=== PATIENT | female | born 1945 | race Caucasian/White ===

== ENCOUNTER 2017-05-21 19:20 | Emergency (ER) | payer SELFPAY ==
[~2017-05-21] VITALS: Ht 172.7 cm; Wt 74.1 kg
[~2017-05-21 19:20] MED LIST: ACET325T14 PO; CLON0.1T PO; ENOX40SY4 SQ; ERTA1VIA IV; FAMO-79 PO; HYDR-3307 PO; LISI-167 PO; NICO-430 TD; POLY17PO5 PO; SENN-99 PO
[2017-05-21 19:27] VITALS: BP 180/107
[2017-05-21] MEDS ORDERED: LORazepam 1MG TABLET ONE (20:27)
[2017-05-21] MEDS ORDERED: PROPOFOL 10 MG/ML, 20ML IVPush ONE (20:30)
[2017-05-21] MEDS ORDERED: BUPIVACAINE/PF 0.5% INFIL ONE (20:30)
[2017-05-21] MEDS ORDERED: SODIUM CHLORIDE FLUSH 10ML SYR IVF ONE (20:30)
[2017-05-21] MEDS ORDERED: LORazepam 1MG TABLET PO ONE (20:30)
[2017-05-21] MEDS ORDERED: ONDANSETRON 2MG/ML, 2ML IVPush ONE (20:30)
[2017-05-21] MEDS ORDERED: PROPOFOL 10 MG/ML, 20ML ONE (21:05)
[2017-05-21] MEDS ORDERED: MORPHINE SULFATE 4 MG/ML, 1ML ONE (21:05)
[2017-05-21] MEDS ORDERED: ONDANSETRON 2MG/ML, 2ML ONE (21:05)
[2017-05-21] MEDS ORDERED: BUPIVACAINE/PF 0.5% ONE (21:13)
[2017-05-21] MEDS ORDERED: MORPHINE SULFATE 4 MG/ML, 1ML IVPush ONE (22:00)
== END 2017-05-21 22:33 | disposition home or self-care (01) ==
LOC: ED 22:05
DX: S52.592A Other fractures of lower end of left radius, initial encounter for closed fracture (principal); S52.612A Displaced fracture of left ulna styloid process, initial encounter for closed fracture; I25.2 Old myocardial infarction; F17.210 Nicotine dependence, cigarettes, uncomplicated; W00.0XXA Fall on same level due to ice and snow, initial encounter; Y93.89 Activity, other specified; Y92.488 Other paved roadways as the place of occurrence of the external cause; Y99.8 Other external cause status; Z01.818 Encounter for other preprocedural examination
CPT/HCPCS: 25605; 73100; 73110; 96374; 96375; 99152; 99153; 99285; J2405; J2704; J3490

== ENCOUNTER 2017-07-30 14:14 | Inpatient (IN) | payer MEDICARE, OTHER ==
[~2017-07-30] VITALS: Ht 170.2 cm; Wt 74.1 kg
[2017-07-30] MEDS ORDERED: ONDANSETRON ODT 4 MG PO ONE ×2 (15:30→16:00)
[2017-07-30] MEDS ORDERED: SODIUM CHLORIDE 0.9% 1,000ML IVBOLUS ONE (15:30)
[2017-07-30 15:38] LABS: BASOPHILS # (AUTO) 0.08 x10^3/uL (0-0.1); BASOPHILS % (AUTO) 1 % (0-1); EOSINOPHILS # (AUTO) 0.12 x10^3/uL (0-0.4); EOSINOPHILS % (AUTO) 1 % (1-7); LYMPHOCYTES % (AUTO) 31 % (22-44); MD NO; MEAN CORPUSCULAR HEMOGLOBIN 29.2 pg (27.0-34.8); MEAN CORPUSCULAR HGB CONC 33.1 g/dL (32.4-35.8); MEAN CORPUSCULAR VOLUME 88.3 fL (80-100); MONOCYTES # (AUTO) 0.81 x10^3/uL (0.2-0.8); MONOCYTES % (AUTO) 7 % (2-9); NEUTROPHILS # (AUTO) 7.06 x10^3/uL (1.8-6.8); NEUTROPHILS % (AUTO) 61 % (42-75); PLATELET COUNT 254 x10^3/uL (130-400); RED BLOOD COUNT 6.02 x10^6/uL (3.82-5.3); RED CELL DISTRIBUTION WIDTH 13.8 % (9.6-15.2)
[2017-07-30 15:49] LABS: ALANINE AMINOTRANSFERASE 31 U/L (12-78); ALBUMIN 3.5 g/dL (3.4-5.0); ANION GAP 10 mmol/L (5-15); CALCIUM 10.4 mg/dL (8.5-10.1); CHLORIDE 100 mmol/L (98-107); CREATININE 0.84 mg/dL (0.55-1.02)
[2017-07-30 15:52] LABS: ALKALINE PHOSPHATASE 190 U/L (45-117); BILIRUBIN,TOTAL 0.9 mg/dL (0.2-1.0); TOTAL PROTEIN 7.9 g/dL (6.4-8.2)
[2017-07-30] MEDS ORDERED: HYDROmorphone 1 MG/ML, 1ML IV ONE ×2 (16:00→16:30)
[2017-07-30] MEDS ORDERED: HYDROmorphone 2 MG/ML, 1ML ONE ×2 (16:02→18:02)
[2017-07-30] MEDS ORDERED: ONDANSETRON ODT 4 MG ONE (16:02)
[2017-07-30] MEDS ORDERED: HYDROmorphone 2 MG/ML, 1ML IV ONE (16:30)
[2017-07-30] MEDS ORDERED: SODIUM CHLORIDE FLUSH 10ML SYR IVF ONE (17:30)
[2017-07-30] MEDS ORDERED: NS + 40MEQ KCL 1,000 ML IV ONE (18:30)
[2017-07-30] MEDS ORDERED: ACETAMINOPHEN 325 MG TABLET PO PRN (19:00)
[2017-07-30] MEDS ORDERED: hydrALAzine 20 MG/ML, 1ML IVPush PRN (19:00)
[2017-07-30] MEDS ORDERED: BISACODYL 10 MG SUPP PR PRN (19:00)
[2017-07-30] MEDS ORDERED: ONDANSETRON 2MG/ML, 2ML IVPush PRN (19:00)
[2017-07-30] MEDS ORDERED: POTASSIUM CHLORIDE 40 MEQ in SODIUM CHLORIDE 0.9% 500 ML IV ONE (19:00)
[2017-07-30 19:38] LABS: MICROSCOPIC INDICATED
[2017-07-30 20:12] LABS: CULTURE INDICATED? YES
[2017-07-30 20:33] VITALS: BP 166/95
[2017-07-30] MEDS: NS + 20MEQ KCL 1,000 ML IV SCH (21:49)
[2017-07-30] MEDS: LISINOPRIL 10 MG TABLET PO SCH (21:50)
[2017-07-30] MEDS: NICOTINE 14MG/24 HR PATCH.TD24 TD SCH (21:50)
[2017-07-30] MEDS: morphine SULFATE 10 MG/ML, 1ML IVPush PRN (22:38)
[2017-07-31 01:05] VITALS: BP 171/73
[2017-07-31] MEDS: morphine SULFATE 10 MG/ML, 1ML IVPush PRN ×4 (01:39→11:46)
[2017-07-31 06:15] LABS: CHLORIDE 107 mmol/L (98-107)
[2017-07-31 06:36] LABS: MEAN CORPUSCULAR HEMOGLOBIN 29.7 pg (27.0-34.8); MEAN CORPUSCULAR VOLUME 90.1 fL (80-100); PLATELET COUNT 235 x10^3/uL (130-400); RED BLOOD COUNT 5.29 x10^6/uL (3.82-5.3); RED CELL DISTRIBUTION WIDTH 14.1 % (9.6-15.2)
[2017-07-31 07:07] LABS: BASOPHILS # (AUTO) 0.06 x10^3/uL (0-0.1); BASOPHILS % (AUTO) 1 % (0-1); EOSINOPHILS % (AUTO) 3 % (1-7); LYMPHOCYTES # (AUTO) 3.76 x10^3/uL (1-3.4); LYMPHOCYTES % (AUTO) 33 % (22-44); MD SCAN; MONOCYTES % (AUTO) 6 % (2-9); NEUTROPHILS % (AUTO) 58 % (42-75)
[2017-07-31 07:26] LABS: ALANINE AMINOTRANSFERASE 27 U/L (12-78); ALBUMIN 3.2 g/dL (3.4-5.0); ALKALINE PHOSPHATASE 169 U/L (45-117); BILIRUBIN,TOTAL 0.8 mg/dL (0.2-1.0); CALCIUM 9.8 mg/dL (8.5-10.1); CREATININE 0.71 mg/dL (0.55-1.02); TOTAL PROTEIN 6.9 g/dL (6.4-8.2)
[2017-07-31 07:34] LABS: ANION GAP 7 mmol/L (5-15)
[2017-07-31 07:40] VITALS: BP 186/99
[2017-07-31] MEDS: NS + 20MEQ KCL 1,000 ML IV SCH ×2 (08:28→23:50)
[2017-07-31] MEDS: LISINOPRIL 10 MG TABLET PO SCH ×2 (08:28→21:00)
[2017-07-31 10:05] VITALS: BP 137/64
[2017-07-31] MEDS ORDERED: hydrALAzine 20 MG/ML, 1ML IVPush PRN (11:00)
[2017-07-31] MEDS ORDERED: NALOXONE 1 MG/ML, 2ML ONE (13:44)
[2017-07-31] MEDS ORDERED: FLUMAZENIL 0.1 MG/1 ML, 5ML ONE (13:44)
[2017-07-31] MEDS ORDERED: HEPARIN 1,000 UNITS/ML, 10ML ONE (13:44)
[2017-07-31] MEDS ORDERED: FENTANYL PF 100 MCG/2ML ONE (13:44)
[2017-07-31] MEDS ORDERED: MIDAZOLAM 1 MG/ML, 5ML ONE (13:44)
[2017-07-31] MEDS ORDERED: PROTAMINE SULFATE 10 MG/ML, 25ML ONE (13:44)
[2017-07-31] MEDS ORDERED: VISIPAQUE 270 MG/ML, 150ML BOTTLE ONE (14:00)
[2017-07-31] MEDS ORDERED: ONDANSETRON 2MG/ML, 2ML ONE (15:18)
[2017-07-31] MEDS ORDERED: DIPHENHYDRAMINE 50 MG/ML, 1ML ONE (15:26)
[2017-07-31] MEDS ORDERED: LABETALOL 5MG/ML, 20ML ONE (15:36)
[2017-07-31] MEDS ORDERED: CLOPIDOGREL 300 MG TABLET PO ONE (16:00)
[2017-07-31 16:05] VITALS: BP 158/96
[2017-07-31] MEDS ORDERED: ONDANSETRON 2MG/ML, 2ML IVPush PRN (16:54)
[2017-07-31] MEDS: NICOTINE 14MG/24 HR PATCH.TD24 TD SCH (18:08)
[2017-07-31 23:25] VITALS: BP 192/81
[2017-08-01 01:15] VITALS: BP 140/68
[2017-08-01] MEDS: morphine SULFATE 10 MG/ML, 1ML IVPush PRN ×3 (07:30→21:53)
[2017-08-01 07:43] VITALS: BP 128/73
[2017-08-01] MEDS: LISINOPRIL 10 MG TABLET PO SCH ×2 (09:00→21:54)
[2017-08-01] MEDS: CLOPIDOGREL 75 MG TABLET PO SCH (09:59)
[2017-08-01] MEDS: NS + 20MEQ KCL 1,000 ML IV SCH ×2 (10:40→21:54)
[2017-08-01 14:23] VITALS: BP 129/69
[2017-08-01 20:41] VITALS: BP 172/91
[2017-08-01] MEDS: NICOTINE 14MG/24 HR PATCH.TD24 TD SCH (21:54)
[2017-08-02 01:21] VITALS: BP 161/96
[2017-08-02] MEDS: morphine SULFATE 10 MG/ML, 1ML IVPush PRN ×5 (01:31→23:52)
[2017-08-02 05:07] LABS: MEAN CORPUSCULAR VOLUME 90.6 fL (80-100); MEAN PLATELET VOLUME 11.8 fL (7.4-10.4); PLATELET COUNT 187 x10^3/uL (130-400); RED BLOOD COUNT 4.58 x10^6/uL (3.82-5.3); RED CELL DISTRIBUTION WIDTH 14.7 % (9.6-15.2)
[2017-08-02 05:12] LABS: ALBUMIN 2.5 g/dL (3.4-5.0); ANION GAP 8 mmol/L (5-15); CALCIUM 9.2 mg/dL (8.5-10.1); CHLORIDE 111 mmol/L (98-107)
[2017-08-02 05:18] LABS: ALANINE AMINOTRANSFERASE 25 U/L (12-78); ALKALINE PHOSPHATASE 132 U/L (45-117); BILIRUBIN,TOTAL 0.8 mg/dL (0.2-1.0); CREATININE 0.68 mg/dL (0.55-1.02); TOTAL PROTEIN 5.9 g/dL (6.4-8.2)
[2017-08-02 06:16] LABS: BASOPHILS # (AUTO) 0.04 x10^3/uL (0-0.1); BASOPHILS % (AUTO) 0 % (0-1); EOSINOPHILS # (AUTO) 0.24 x10^3/uL (0-0.4); EOSINOPHILS % (AUTO) 3 % (1-7); LYMPHOCYTES # (AUTO) 1.75 x10^3/uL (1-3.4); LYMPHOCYTES % (AUTO) 18 % (22-44); MD SCAN; MONOCYTES # (AUTO) 0.66 x10^3/uL (0.2-0.8); MONOCYTES % (AUTO) 7 % (2-9); NEUTROPHILS # (AUTO) 6.91 x10^3/uL (1.8-6.8); NEUTROPHILS % (AUTO) 72 % (42-75)
[2017-08-02] MEDS ORDERED: MAGNESIUM SULFATE PMX 2GM/50ML 50 ML IV ONE (07:00)
[2017-08-02 07:15] VITALS: BP 167/106
[2017-08-02] MEDS: NS + 20MEQ KCL 1,000 ML IV SCH ×2 (08:40→20:17)
[2017-08-02] MEDS: CLOPIDOGREL 75 MG TABLET PO SCH (08:41)
[2017-08-02] MEDS: LISINOPRIL 10 MG TABLET PO SCH ×2 (08:41→20:53)
[2017-08-02 15:00] VITALS: BP 177/117
[2017-08-02 19:50] VITALS: BP 171/103
[2017-08-02] MEDS: NICOTINE 14MG/24 HR PATCH.TD24 TD SCH (21:00)
[2017-08-03 01:47] VITALS: BP 154/94
[2017-08-03] MEDS: morphine SULFATE 10 MG/ML, 1ML IVPush PRN ×4 (03:17→21:04)
[2017-08-03] MEDS: NS + 20MEQ KCL 1,000 ML IV SCH ×2 (05:30→14:24)
[2017-08-03 07:48] VITALS: BP 182/94
[2017-08-03] MEDS: CLOPIDOGREL 75 MG TABLET PO SCH (08:25)
[2017-08-03] MEDS: LISINOPRIL 10 MG TABLET PO SCH ×2 (08:26→21:00)
[2017-08-03] MEDS ORDERED: KETOROLAC 30 MG/1 ML IVPush PRN (12:00)
[2017-08-03 12:42] VITALS: BP 176/94
[2017-08-03] MEDS: NAPROXEN 250 MG TABLET PO PRN ×2 (13:51→21:04)
[2017-08-03 19:38] VITALS: BP 184/102
[2017-08-03] MEDS: NICOTINE 14MG/24 HR PATCH.TD24 TD SCH (21:00)
[2017-08-04] MEDS: NS + 20MEQ KCL 1,000 ML IV SCH (00:34)
[2017-08-04] MEDS ORDERED: MORPHINE SULFATE 4 MG/ML, 1ML ONE ×2 (00:39→04:54)
[2017-08-04] MEDS: morphine SULFATE 10 MG/ML, 1ML IVPush PRN ×5 (00:41→20:24)
[2017-08-04 01:31] VITALS: BP 189/101
[2017-08-04 01:44] VITALS: BP 176/93
[2017-08-04] MEDS: CLOPIDOGREL 75 MG TABLET PO SCH (08:01)
[2017-08-04] MEDS: PANTOPROZOLE 40MG TABLET PO SCH (08:02)
[2017-08-04] MEDS: NAPROXEN 250 MG TABLET PO PRN (08:02)
[2017-08-04] MEDS: LISINOPRIL 10 MG TABLET PO SCH ×2 (08:03→19:48)
[2017-08-04 08:30] VITALS: BP 168/98
[2017-08-04 09:31] LABS: ANION GAP 6 mmol/L (5-15); CALCIUM 8.6 mg/dL (8.5-10.1); CHLORIDE 110 mmol/L (98-107); CREATININE 0.58 mg/dL (0.55-1.02)
[2017-08-04] MEDS: ENOXAPARIN 40 MG/0.4 ML SQ SCH (10:27)
[2017-08-04] MEDS: SODIUM CHLORIDE 0.9% 1,000 ML IV SCH (10:27)
[2017-08-04 14:20] VITALS: BP 167/107
[2017-08-04] MEDS ORDERED: MAGNESIUM SULFATE PMX 4GM/100M 100 ML IV ONE (19:00)
[2017-08-04] MEDS: ISOSORBIDE DINITRATE 10 MG TABLET PO SCH (19:48)
[2017-08-04] MEDS: NICOTINE 14MG/24 HR PATCH.TD24 TD SCH (19:48)
[2017-08-04 20:00] VITALS: BP 166/94
[2017-08-04] MEDS: LACTOBACILLUS CHEW TABLET PO SCH (20:25)
[2017-08-05 03:18] VITALS: BP 178/107
[2017-08-05] MEDS: SODIUM CHLORIDE 0.9% 1,000 ML IV SCH (05:08)
[2017-08-05] MEDS: morphine SULFATE 10 MG/ML, 1ML IVPush PRN ×2 (05:17→14:14)
[2017-08-05] MEDS ORDERED: CARVEDILOL 3.125 MG TABLET PO SCH (06:00)
[2017-08-05 08:01] VITALS: BP 177/111
[2017-08-05] MEDS: LACTOBACILLUS CHEW TABLET PO SCH (08:10)
[2017-08-05] MEDS: CLOPIDOGREL 75 MG TABLET PO SCH (08:10)
[2017-08-05] MEDS: PANTOPROZOLE 40MG TABLET PO SCH (08:11)
[2017-08-05] MEDS: ISOSORBIDE DINITRATE 10 MG TABLET PO SCH (09:00)
[2017-08-05] MEDS: LISINOPRIL 10 MG TABLET PO SCH (09:00)
[2017-08-05] MEDS: ENOXAPARIN 40 MG/0.4 ML SQ SCH (09:00)
[2017-08-05] MEDS ORDERED: POLYETHYLENE GLYCOL 17 GM PACKET ONE (09:29)
[2017-08-05] MEDS ORDERED: ASPI-496 PO (11:26)
[2017-08-05] MEDS ORDERED: HYDR-3341 PO (11:26)
[2017-08-05] MEDS ORDERED: ACID1TAB7 PO (11:26)
[2017-08-05] MEDS ORDERED: CARV3.1212 PO (11:26)
[2017-08-05] MEDS ORDERED: CLOP75TA PO (11:26)
[2017-08-05] MEDS ORDERED: ISOS10TA2 PO (11:26)
[2017-08-05 12:50] VITALS: BP 192/108
[2017-08-05 15:37] VITALS: BP 186/100
== END 2017-08-05 16:15 | disposition home or self-care (01) | DRG 356 ==
LOC: ED 18:14 → EDIP 18:19 → ED 18:47 → 4NOR 20:11
PROVIDERS: ADMIT Internal Medicine; ATTEND Hospitalist
PROC: 047 Lower Arteries, Dilation (ICD-10-PCS; principal; 2017-07-31)
PROC: B4101ZZ Fluoroscopy of Abdominal Aorta using Low Osmolar Contrast (ICD-10-PCS; 2017-07-31)
PROC: B4141ZZ Fluoroscopy of Superior Mesenteric Artery using Low Osmolar Contrast (ICD-10-PCS; 2017-07-31)
DX: K55.1 Chronic vascular disorders of intestine (principal); E43 Unspecified severe protein-calorie malnutrition; E87.1 Hypo-osmolality and hyponatremia; I71.4 Abdominal aortic aneurysm, without rupture; D75.1 Secondary polycythemia; E87.5 Hyperkalemia; I25.10 Atherosclerotic heart disease of native coronary artery without angina pectoris; F17.210 Nicotine dependence, cigarettes, uncomplicated; I70.0 Atherosclerosis of aorta; I73.9 Peripheral vascular disease, unspecified; K59.00 Constipation, unspecified; E83.42 Hypomagnesemia; E87.6 Hypokalemia; G89.29 Other chronic pain; I11.9 Hypertensive heart disease without heart failure; I25.2 Old myocardial infarction; Z68.25 Body mass index [BMI] 25.0-25.9, adult; Z82.49 Family history of ischemic heart disease and other diseases of the circulatory system; Z91.19 Patient's noncompliance with other medical treatment and regimen; Z95.5 Presence of coronary angioplasty implant and graft; Z98.51 Tubal ligation status; Z90.49 Acquired absence of other specified parts of digestive tract; Z90.89 Acquired absence of other organs
CPT/HCPCS: 36415; 37236; 74177; 75726; 80048; 80053; 81001; 83605; 83735; 84100; 85025; 87086; 93005; 96361; 96374; 96376; 99156; 99157; J1170; J1644; J1650; J2250; J2405; J2720; J3010; J3480; Q0162; Q9966; C1751; C1769; C1876; C1894; J0360; J1200; J2270; J2310; J3475; J7030

== ENCOUNTER 2017-09-05 11:48 | Inpatient (IN) | payer MEDICARE, OTHER ==
[~2017-09-05] VITALS: Ht 170.2 cm; Wt 66.2 kg
[2017-09-05] VITALS (7 sets, daily range): BP systolic 125–198; BP diastolic 65–102
[~2017-09-05 11:48] MED LIST changes: +ACID1TAB7 PO; +ASPI-496 PO; +CARV3.1212 PO; +CLOP75TA PO; +HYDR-3341 PO; +ISOS10TA2 PO
[2017-09-05] MEDS ORDERED: SODIUM CHLORIDE FLUSH 10ML SYR IVF ONE (12:30)
[2017-09-05 12:50] LABS: BASOPHILS # (AUTO) 0.05 x10^3/uL (0-0.1); BASOPHILS % (AUTO) 1 % (0-1); EOSINOPHILS # (AUTO) 0.18 x10^3/uL (0-0.4); EOSINOPHILS % (AUTO) 2 % (1-7); LYMPHOCYTES # (AUTO) 2.39 x10^3/uL (1-3.4); LYMPHOCYTES % (AUTO) 30 % (22-44); MD NO; MEAN CORPUSCULAR HEMOGLOBIN 29.7 pg (27.0-34.8); MEAN CORPUSCULAR HGB CONC 33.2 g/dL (32.4-35.8); MEAN CORPUSCULAR VOLUME 89.3 fL (80-100); MEAN PLATELET VOLUME 9.8 fL (7.4-10.4); MONOCYTES # (AUTO) 0.47 x10^3/uL (0.2-0.8); MONOCYTES % (AUTO) 6 % (2-9); NEUTROPHILS # (AUTO) 4.96 x10^3/uL (1.8-6.8); NEUTROPHILS % (AUTO) 62 % (42-75); PLATELET COUNT 237 x10^3/uL (130-400); RED BLOOD COUNT 5.47 x10^6/uL (3.82-5.3); RED CELL DISTRIBUTION WIDTH 16.2 % (9.6-15.2)
[2017-09-05 13:01] LABS: INTERNATIONAL NORMALIZED RATIO 0.96 (0.93-1.1)
[2017-09-05 13:06] LABS: ALANINE AMINOTRANSFERASE 22 U/L (12-78); ALBUMIN 3.6 g/dL (3.4-5.0); ANION GAP 8 mmol/L (5-15); CHLORIDE 110 mmol/L (98-107); CREATININE 0.84 mg/dL (0.55-1.02)
[2017-09-05 13:10] LABS: ALKALINE PHOSPHATASE 162 U/L (45-117); BILIRUBIN,TOTAL 0.6 mg/dL (0.2-1.0); TOTAL PROTEIN 7.6 g/dL (6.4-8.2); TROPONIN I < 0.015 ng/mL (0.000-0.045)
[2017-09-05] MEDS ORDERED: SODIUM CHLORIDE FLUSH 10ML SYR IVF PRN (13:30)
[2017-09-05] MEDS ORDERED: POTASSIUM CHLORIDE 20 MEQ TAB.ER.PRT PO ONE (13:30)
[2017-09-05] MEDS: hydrALAzine 20 MG/ML, 1ML IV SCH ×3 (14:00→21:23)
[2017-09-05 14:01] LABS: MICROSCOPIC INDICATED
[2017-09-05] MEDS ORDERED: POTASSIUM CHLORIDE 40 MEQ in SODIUM CHLORIDE 0.9% 1,000 ML IV ONE (14:01)
[2017-09-05 14:02] LABS: CULTURE INDICATED? YES
[2017-09-05] MEDS ORDERED: LABETALOL 5MG/ML, 20ML ONE (14:18)
[2017-09-05] MEDS ORDERED: hydrALAzine 20 MG/ML, 1ML IV SCH (14:30)
[2017-09-05] MEDS ORDERED: LABETALOL 5MG/ML, 20ML IVPush ONE (14:30)
[2017-09-05] MEDS ORDERED: ACETAMINOPHEN 325 MG TABLET PO PRN (15:30)
[2017-09-05] MEDS ORDERED: ONDANSETRON 2MG/ML, 2ML IVPush PRN (15:30)
[2017-09-05] MEDS ORDERED: HYDROcodone/APAP 5/325 TABLET PO PRN (15:30)
[2017-09-05] MEDS ORDERED: hydrALAzine 20 MG/ML, 1ML ONE (15:43)
[2017-09-05] MEDS ORDERED: NICOTINE 21 MG/24 HR PATCH.TD24 ONE (15:43)
[2017-09-05] MEDS ORDERED: NS + 40MEQ KCL 1,000 ML IV ONE (15:43)
[2017-09-05 15:44] LABS: FREE T4 (FREE THYROXINE) 1.35 ng/dL (0.76-1.46); THYROID STIMULATING HORMONE 0.005 mIU/L (0.358-3.740)
[2017-09-05] MEDS: NICOTINE 21 MG/24 HR PATCH.TD24 TD SCH (17:04)
[2017-09-05] MEDS: ATORVASTATIN 40 MG TABLET PO SCH (21:00)
[2017-09-05] MEDS: CEFTRIAXONE 1,000 MG in SODIUM CHLORIDE 0.9% 50 ML IV SCH (21:22)
[2017-09-05] MEDS: morphine SULFATE 10 MG/ML, 1ML IVPush PRN (22:07)
[2017-09-05] MEDS: ENALAPRILAT 1.25 MG/ML, 2ML IV SCH (22:22)
[2017-09-06] VITALS (12 sets, daily range): BP systolic 122–177; BP diastolic 72–87
[2017-09-06] MEDS: hydrALAzine 20 MG/ML, 1ML IV SCH ×2 (00:21→05:03)
[2017-09-06] MEDS: ENALAPRILAT 1.25 MG/ML, 2ML IV SCH ×7 (02:42→23:18)
[2017-09-06] MEDS ORDERED: LORazepam 2 MG/ML, 1ML IVPush ONE (06:30)
[2017-09-06] MEDS ORDERED: LORazepam 2 MG/ML, 1ML IVPush PRN (06:30)
[2017-09-06 10:02] LABS: BASOPHILS # (AUTO) 0.02 x10^3/uL (0-0.1); BASOPHILS % (AUTO) 0 % (0-1); EOSINOPHILS # (AUTO) 0.06 x10^3/uL (0-0.4); EOSINOPHILS % (AUTO) 1 % (1-7); LYMPHOCYTES # (AUTO) 2.04 x10^3/uL (1-3.4); LYMPHOCYTES % (AUTO) 27 % (22-44); MD NO; MEAN CORPUSCULAR HGB CONC 33.9 g/dL (32.4-35.8); MEAN CORPUSCULAR VOLUME 88.4 fL (80-100); MEAN PLATELET VOLUME 9.9 fL (7.4-10.4); MONOCYTES # (AUTO) 0.36 x10^3/uL (0.2-0.8); MONOCYTES % (AUTO) 5 % (2-9); NEUTROPHILS # (AUTO) 5.22 x10^3/uL (1.8-6.8); NEUTROPHILS % (AUTO) 68 % (42-75); PLATELET COUNT 228 x10^3/uL (130-400); RED BLOOD COUNT 5.25 x10^6/uL (3.82-5.3); RED CELL DISTRIBUTION WIDTH 16.4 % (9.6-15.2)
[2017-09-06 10:14] LABS: ANION GAP 9 mmol/L (5-15); CHLORIDE 113 mmol/L (98-107); CREATININE 0.71 mg/dL (0.55-1.02)
[2017-09-06] MEDS: SODIUM CHLORIDE 0.9% 1,000 ML IV SCH (10:18)
[2017-09-06] MEDS ORDERED: ENOXAPARIN 30 MG/0.3 ML SQ SCH (13:30)
[2017-09-06] MEDS ORDERED: ACETAMINOPHEN 650 MG SUPP PR PRN (14:00)
[2017-09-06] MEDS: NICOTINE 21 MG/24 HR PATCH.TD24 TD SCH (15:30)
[2017-09-06] MEDS: ATORVASTATIN 40 MG TABLET PO SCH (19:42)
[2017-09-06] MEDS: CEFTRIAXONE 1,000 MG in SODIUM CHLORIDE 0.9% 50 ML IV SCH (21:00)
[2017-09-07] VITALS (10 sets, daily range): BP systolic 149–206; BP diastolic 77–100
[2017-09-07] MEDS: ENALAPRILAT 1.25 MG/ML, 2ML IV SCH ×6 (03:11→17:49)
[2017-09-07] MEDS: SODIUM CHLORIDE 0.9% 1,000 ML IV SCH ×2 (04:49→17:50)
[2017-09-07] MEDS: METOPROLOL 1 MG/ML, 5ML IVPush SCH ×3 (09:30→20:47)
[2017-09-07] MEDS: ENOXAPARIN 40 MG/0.4 ML SQ SCH (13:40)
[2017-09-07] MEDS: NICOTINE 21 MG/24 HR PATCH.TD24 TD SCH (15:03)
[2017-09-07] MEDS: ATORVASTATIN 40 MG TABLET PO SCH (20:06)
[2017-09-07] MEDS: ASPIRIN 81 MG TABLET EC PO SCH (20:06)
[2017-09-07] MEDS: CEFTRIAXONE 1,000 MG in SODIUM CHLORIDE 0.9% 50 ML IV SCH (20:58)
[2017-09-08] VITALS (11 sets, daily range): BP systolic 108–201; BP diastolic 63–98
[2017-09-08] MEDS: ENALAPRILAT 1.25 MG/ML, 2ML IV SCH ×7 (00:07→21:38)
[2017-09-08] MEDS: METOPROLOL 1 MG/ML, 5ML IVPush SCH ×4 (04:36→19:40)
[2017-09-08] MEDS: ENALAPRILAT MC SCH ×3 (08:00→23:27)
[2017-09-08] MEDS ORDERED: ENALAPRILAT 1.25 MG/ML, 2ML IV SCH (08:00)
[2017-09-08] MEDS ORDERED: cloniDINE 0.3MG PATCH TD SCH (08:00)
[2017-09-08] MEDS: PANTOPRAZOLE 40 MG IV IVPush SCH ×2 (08:07→21:38)
[2017-09-08] MEDS: hydrALAzine 20 MG/ML, 1ML IV PRN ×2 (08:07→12:09)
[2017-09-08] MEDS: SODIUM CHLORIDE 0.9% 1,000 ML IV SCH ×2 (08:09→20:22)
[2017-09-08] MEDS: ENOXAPARIN 40 MG/0.4 ML SQ SCH (14:33)
[2017-09-08] MEDS: NICOTINE 21 MG/24 HR PATCH.TD24 TD SCH (16:21)
[2017-09-08] MEDS: ATORVASTATIN 40 MG TABLET PO SCH (19:40)
[2017-09-08] MEDS: CEFTRIAXONE 1,000 MG in SODIUM CHLORIDE 0.9% 50 ML IV SCH (21:38)
[2017-09-09 01:54] VITALS: BP 161/61
[2017-09-09] MEDS: METOPROLOL 1 MG/ML, 5ML IVPush SCH ×4 (02:00→22:07)
[2017-09-09] MEDS: ASPIRIN 81 MG TABLET EC PO SCH (02:01)
[2017-09-09] MEDS: ENALAPRILAT 1.25 MG/ML, 2ML IV SCH ×6 (02:19→22:07)
[2017-09-09 06:24] VITALS: BP 140/69
[2017-09-09 06:48] VITALS: BP 184/75
[2017-09-09] MEDS: ENALAPRILAT MC SCH ×3 (08:00→23:59)
[2017-09-09] MEDS ORDERED: NITROGLYCERIN OINT 2%, 1GM TP ONE (08:06)
[2017-09-09] MEDS: PANTOPRAZOLE 40 MG IV IVPush SCH ×2 (08:15→22:07)
[2017-09-09] MEDS: NITROGLYCERIN OINT 2%, 1GM TP SCH ×3 (08:17→22:23)
[2017-09-09] MEDS: SODIUM CHLORIDE 0.9% 1,000 ML IV SCH (08:56)
[2017-09-09] MEDS: LISINOPRIL 20 MG TABLET PO SCH ×2 (09:30→22:08)
[2017-09-09 10:00] VITALS: BP 152/70
[2017-09-09 12:39] VITALS: BP 162/86
[2017-09-09] MEDS ORDERED: BENZOCAINE 20% SPRAY 0.5ML ONE (15:35)
[2017-09-09] MEDS ORDERED: LIDOCAINE GEL 2%, 5ML ONE (15:36)
[2017-09-09] MEDS: morphine SULFATE 10 MG/ML, 1ML IVPush PRN (16:10)
[2017-09-09] MEDS: NICOTINE 21 MG/24 HR PATCH.TD24 TD SCH (18:09)
[2017-09-09] MEDS: ENOXAPARIN 40 MG/0.4 ML SQ SCH (18:12)
[2017-09-09 19:09] VITALS: BP 153/68
[2017-09-09] MEDS: ATORVASTATIN 40 MG TABLET PO SCH (22:08)
[2017-09-09] MEDS: CEFTRIAXONE 1,000 MG in SODIUM CHLORIDE 0.9% 50 ML IV SCH (22:23)
[2017-09-10 01:08] VITALS: BP 159/68
[2017-09-10] MEDS: ENALAPRILAT 1.25 MG/ML, 2ML IV SCH ×5 (02:09→21:15)
[2017-09-10] MEDS: METOPROLOL 1 MG/ML, 5ML IVPush SCH ×4 (02:10→21:16)
[2017-09-10] MEDS: NITROGLYCERIN OINT 2%, 1GM TP SCH ×4 (02:10→21:17)
[2017-09-10] MEDS: ASPIRIN 81 MG TABLET EC PO SCH (05:42)
[2017-09-10] MEDS: SODIUM CHLORIDE 0.9% 1,000 ML IV SCH ×2 (06:04→18:22)
[2017-09-10 06:46] VITALS: BP 181/79
[2017-09-10] MEDS: ENALAPRILAT MC SCH (08:00)
[2017-09-10] MEDS: LISINOPRIL 20 MG TABLET PO SCH ×2 (08:35→21:18)
[2017-09-10] MEDS: METOPROLOL TARTRATE 25 MG TABLET PO SCH ×2 (08:35→18:22)
[2017-09-10] MEDS: PANTOPRAZOLE 40 MG IV IVPush SCH ×2 (08:36→21:16)
[2017-09-10 12:44] VITALS: BP 153/69
[2017-09-10 15:43] VITALS: BP 146/76
[2017-09-10] MEDS: NICOTINE 21 MG/24 HR PATCH.TD24 TD SCH (15:46)
[2017-09-10] MEDS: ENOXAPARIN 40 MG/0.4 ML SQ SCH (15:46)
[2017-09-10 19:03] VITALS: BP 141/69
[2017-09-10] MEDS: ATORVASTATIN 40 MG TABLET PO SCH (21:17)
[2017-09-11] VITALS (7 sets, daily range): BP systolic 130–166; BP diastolic 65–97
[2017-09-11] MEDS: METOPROLOL 1 MG/ML, 5ML IVPush SCH ×4 (02:20→19:30)
[2017-09-11] MEDS: NITROGLYCERIN OINT 2%, 1GM TP SCH ×4 (02:20→19:29)
[2017-09-11] MEDS: ENALAPRILAT 1.25 MG/ML, 2ML IV SCH ×6 (03:55→19:31)
[2017-09-11] MEDS: METOPROLOL TARTRATE 25 MG TABLET PO SCH ×2 (06:00→18:00)
[2017-09-11] MEDS: ASPIRIN 81 MG TABLET EC PO SCH (06:37)
[2017-09-11] MEDS: SODIUM CHLORIDE 0.9% 1,000 ML IV SCH (08:57)
[2017-09-11] MEDS: LISINOPRIL 20 MG TABLET PO SCH ×2 (08:57→22:10)
[2017-09-11] MEDS: PANTOPRAZOLE 40 MG IV IVPush SCH (08:58)
[2017-09-11] MEDS: ENOXAPARIN 40 MG/0.4 ML SQ SCH (13:44)
[2017-09-11] MEDS: NICOTINE 21 MG/24 HR PATCH.TD24 TD SCH (15:09)
[2017-09-11] MEDS: ATORVASTATIN 40 MG TABLET PO SCH (22:10)
[2017-09-12] VITALS (9 sets, daily range): BP systolic 154–180; BP diastolic 66–90
[2017-09-12] MEDS: ENALAPRILAT 1.25 MG/ML, 2ML IV SCH ×6 (00:15→20:15)
[2017-09-12] MEDS: METOPROLOL 1 MG/ML, 5ML IVPush SCH ×4 (02:07→20:30)
[2017-09-12] MEDS: NITROGLYCERIN OINT 2%, 1GM TP SCH ×4 (02:34→21:27)
[2017-09-12] MEDS ORDERED: ASPIRIN 81 MG TABLET CHEW ONE (05:03)
[2017-09-12] MEDS: METOPROLOL TARTRATE 25 MG TABLET PO SCH ×2 (05:18→17:43)
[2017-09-12] MEDS: ASPIRIN 81 MG TABLET CHEW PO SCH (05:20)
[2017-09-12] MEDS ORDERED: MAGNESIUM SULFATE PMX 2GM/50ML 50 ML IV ONE (06:00)
[2017-09-12 06:16] LABS: ANION GAP 6 mmol/L (5-15); CALCIUM 9.1 mg/dL (8.5-10.1); CHLORIDE 109 mmol/L (98-107); CREATININE 0.53 mg/dL (0.55-1.02)
[2017-09-12] MEDS ORDERED: POTASSIUM CHLORIDE 10% 40 MEQ/30 ML UDC PO ONE (08:00)
[2017-09-12] MEDS: LISINOPRIL 20 MG TABLET PO SCH ×2 (08:28→22:26)
[2017-09-12] MEDS: PANTOPRAZOLE GRAN. PKT 40 MG NG SCH (08:35)
[2017-09-12] MEDS ORDERED: SODIUM CHLORIDE 0.9% 1,000 ML IV SCH (09:30)
[2017-09-12] MEDS ORDERED: DOCUSATE 50 MG/5 ML ORAL SOL PO/NG PRN (11:30)
[2017-09-12] MEDS: POTASSIUM CHLORIDE 10% 40 MEQ/30 ML UDC PO SCH ×2 (11:46→15:04)
[2017-09-12] MEDS: ENOXAPARIN 40 MG/0.4 ML SQ SCH (15:07)
[2017-09-12] MEDS: NICOTINE 21 MG/24 HR PATCH.TD24 TD SCH (15:08)
[2017-09-12] MEDS ORDERED: DOCUSATE 50 MG/5 ML, 10ML UDC PO/NG PRN (15:30)
[2017-09-12] MEDS: ATORVASTATIN 40 MG TABLET PO SCH (22:26)
[2017-09-12] MEDS ORDERED: cloniDINE 0.3MG PATCH TD SCH (23:00)
[2017-09-13] VITALS (12 sets, daily range): BP systolic 125–175; BP diastolic 68–97
[2017-09-13] MEDS: ENALAPRILAT 1.25 MG/ML, 2ML IV SCH ×6 (00:55→21:04)
[2017-09-13] MEDS: METOPROLOL 1 MG/ML, 5ML IVPush SCH ×2 (02:30→08:30)
[2017-09-13] MEDS: NITROGLYCERIN OINT 2%, 1GM TP SCH ×4 (02:30→21:04)
[2017-09-13 04:58] LABS: ANION GAP 5 mmol/L (5-15); CHLORIDE 108 mmol/L (98-107); CREATININE 0.59 mg/dL (0.55-1.02)
[2017-09-13 04:59] LABS: CALCIUM 9.3 mg/dL (8.5-10.1)
[2017-09-13] MEDS: METOPROLOL TARTRATE 25 MG TABLET PO SCH (06:00)
[2017-09-13] MEDS: ASPIRIN 81 MG TABLET CHEW PO SCH (08:14)
[2017-09-13] MEDS: PANTOPRAZOLE GRAN. PKT 40 MG NG SCH (08:14)
[2017-09-13] MEDS: LISINOPRIL 20 MG TABLET PO SCH ×2 (09:35→21:53)
[2017-09-13] MEDS: ENOXAPARIN 40 MG/0.4 ML SQ SCH (15:11)
[2017-09-13] MEDS: NICOTINE 21 MG/24 HR PATCH.TD24 TD SCH (15:11)
[2017-09-13] MEDS: METOPROLOL TARTRATE 50 MG TABLET PO SCH (18:31)
[2017-09-13] MEDS: BISACODYL 10 MG SUPP PR PRN (21:04)
[2017-09-13] MEDS: ATORVASTATIN 40 MG TABLET PO SCH (21:52)
[2017-09-14] VITALS (9 sets, daily range): BP systolic 115–142; BP diastolic 65–84
[2017-09-14] MEDS: NITROGLYCERIN OINT 2%, 1GM TP SCH ×2 (02:30→08:12)
[2017-09-14] MEDS: ENALAPRILAT 1.25 MG/ML, 2ML IV SCH ×3 (03:57→08:00)
[2017-09-14] MEDS: ASPIRIN 81 MG TABLET CHEW PO SCH (04:58)
[2017-09-14] MEDS: METOPROLOL TARTRATE 50 MG TABLET PO SCH (04:58)
[2017-09-14] MEDS: LISINOPRIL 20 MG TABLET PO SCH (09:00)
[2017-09-14] MEDS: PANTOPRAZOLE GRAN. PKT 40 MG NG SCH (09:12)
[2017-09-14] MEDS: BISACODYL 10 MG SUPP PR PRN (10:08)
[2017-09-14] MEDS ORDERED: ENOX40SY4 SQ (11:08)
[2017-09-14] MEDS ORDERED: PANT40GR NG (11:08)
[2017-09-14] MEDS ORDERED: METO50TA82 PO (11:08)
[2017-09-14] MEDS ORDERED: HYDR-3343 PO (11:08)
[2017-09-14] MEDS ORDERED: CLON1PAT3 TD (11:08)
[2017-09-14] MEDS ORDERED: ASPI-515 PO (11:08)
[2017-09-14] MEDS ORDERED: LISI40TA PO (11:08)
[2017-09-14] MEDS ORDERED: ATOR40TA78 PO (11:08)
[2017-09-14] MEDS ORDERED: NICO-487 TD (11:08)
[2017-09-14] MEDS: ENOXAPARIN 40 MG/0.4 ML SQ SCH (14:00)
[2017-09-14] MEDS: NICOTINE 21 MG/24 HR PATCH.TD24 TD SCH (17:16)
== END 2017-09-14 19:00 | DRG 65 ==
LOC: ED 13:26 → EDIP 13:27 → ED 13:57 → 5SO 15:55 → 4WST 09-12 19:09
PROVIDERS: ADMIT Hospitalist; ATTEND Internal Medicine
PROC: 0DH67UZ Insertion of Feeding Device into Stomach, Via Natural or Artificial Opening (ICD-10-PCS; principal; 2017-09-09)
DX: I63.9 Cerebral infarction, unspecified (principal); N39.0 Urinary tract infection, site not specified; I10 Essential (primary) hypertension; E87.6 Hypokalemia; E78.5 Hyperlipidemia, unspecified; I16.0 Hypertensive urgency; I73.9 Peripheral vascular disease, unspecified; I71.4 Abdominal aortic aneurysm, without rupture; K59.00 Constipation, unspecified; I25.10 Atherosclerotic heart disease of native coronary artery without angina pectoris; F17.210 Nicotine dependence, cigarettes, uncomplicated; I65.23 Occlusion and stenosis of bilateral carotid arteries; E83.39 Other disorders of phosphorus metabolism; R13.10 Dysphagia, unspecified; H53.9 Unspecified visual disturbance; R29.810 Facial weakness; R47.81 Slurred speech; H53.8 Other visual disturbances; Z79.82 Long term (current) use of aspirin; Z79.899 Other long term (current) drug therapy; Z86.73 Personal history of transient ischemic attack (TIA), and cerebral infarction without residual deficits; Z86.79 Personal history of other diseases of the circulatory system; Z79.02 Long term (current) use of antithrombotics/antiplatelets; Z90.49 Acquired absence of other specified parts of digestive tract; Z91.14 Patient's other noncompliance with medication regimen; Z95.5 Presence of coronary angioplasty implant and graft; Z98.51 Tubal ligation status; I25.2 Old myocardial infarction; Z88.5 Allergy status to narcotic agent; Z89.022 Acquired absence of left finger(s)
CPT/HCPCS: 36415; 70450; 70544; 70546; 70551; 71045; 74018; 74230; 74340; 80048; 80053; 81001; 83735; 84100; 84439; 84443; 84484; 85025; 85610; 85730; 87086; 93005; 93306; 93880; 96374; J1650; J2405; J3480; C9113; J0360; J2060; J2270; J3475; J7030

== ENCOUNTER 2018-04-10 19:45 | Inpatient (IN) | payer MEDICARE, OTHER ==
[2018-04-10] VITALS (9 sets, daily range): BP systolic 98–150; BP diastolic 64–101
[~2018-04-10] VITALS: Ht 170.2 cm; Wt 72.9 kg
[~2018-04-10 19:45] MED LIST changes: +ASPI-515 PO; +ATOR40TA78 PO; -CLON0.1T PO; +CLON0.1T22 PO; +CLON1PAT3 TD; +HYDR-3343 PO; +LISI40TA PO; +METO50TA82 PO; +NICO-487 TD; +PANT40GR NG
[2018-04-10] MEDS ORDERED: OMNIPAQUE 350 MG/ML, 100ML BOTTLE ONE (20:00)
[2018-04-10 20:17] LABS: BASOPHILS # (AUTO) 0.03 x10^3/uL (0-0.1); BASOPHILS % (AUTO) 0 % (0-1); EOSINOPHILS # (AUTO) 0.39 x10^3/uL (0-0.4); EOSINOPHILS % (AUTO) 3 % (1-7); LYMPHOCYTES % (AUTO) 28 % (22-44); MD NO; MEAN CORPUSCULAR HEMOGLOBIN 29.6 pg (27.0-34.8); MEAN CORPUSCULAR VOLUME 89.9 fL (80-100); MEAN PLATELET VOLUME 10.5 fL (7.4-10.4); MONOCYTES # (AUTO) 1.13 x10^3/uL (0.2-0.8); MONOCYTES % (AUTO) 8 % (2-9); NEUTROPHILS # (AUTO) 8.49 x10^3/uL (1.8-6.8); NEUTROPHILS % (AUTO) 61 % (42-75); PLATELET COUNT 225 x10^3/uL (130-400); RED BLOOD COUNT 4.83 x10^6/uL (3.82-5.3); RED CELL DISTRIBUTION WIDTH 14.8 % (9.6-15.2)
[2018-04-10 20:22] LABS: INTERNATIONAL NORMALIZED RATIO 1.02 (0.93-1.1); PROTHROMBIN TIME 10.8 Seconds (9.6-11.5)
[2018-04-10] MEDS ORDERED: ALTEPLASE 1 MG/ML ONE (20:28)
[2018-04-10] MEDS ORDERED: ALTEPLASE IV ONE (20:30)
[2018-04-10] MEDS ORDERED: ALTEPLASE 7 MG in SYRINGE 1 EA IVPush ONE (20:30)
--- NOTE | 2018-04-10 20:30 | NUR ---
PT BACK FROM CT SCAN AND PLACED IN GOWN ON MONITOR AND AWAITING NEUROLOGIST
--- NOTE | 2018-04-10 20:45 | NUR ---
TPA STARTED ORDERED
--- NOTE | 2018-04-10 21:02 | NUR ---
CODE NEURO CALLED AT 1936. NEUROLOGY PAGED AT 1950.
--- NOTE | 2018-04-10 21:07 | NUR ---
REPORT GIVEN TO CCU RN AND AWAITING ADMIT ORDERS.
[2018-04-10] MEDS: ATORVASTATIN 40 MG TABLET PO SCH (21:30)
[2018-04-10] MEDS ORDERED: ONDANSETRON 2MG/ML, 2ML IVPush PRN (21:30)
[2018-04-10] MEDS ORDERED: LABETALOL 5MG/ML, 20ML IV PRN (21:30)
[2018-04-10] MEDS: SODIUM CHLORIDE 0.9% 1,000 ML IV SCH (23:29)
[2018-04-10] MEDS: NICOTINE 21 MG/24 HR PATCH.TD24 TD SCH (23:29)
[2018-04-11] MEDS: PANTOPRAZOLE GRAN. PKT 40 MG NG SCH (07:59)
[2018-04-11] MEDS: POLYETHYLENE GLYCOL 17 GM PACKET PO SCH ×2 (07:59→11:12)
[2018-04-11] MEDS: morphine SULFATE 10 MG/ML, 1ML IVPush PRN (08:34)
--- NOTE | 2018-04-11 10:04 | NUR ---
REC GROUND/THIN; swallow precaution sheet posted at bedside Addendum: 04/11/18 at [address] Amended: Links added.
[2018-04-11] MEDS: ACETAMINOPHEN 325 MG TABLET PO PRN (12:12)
[2018-04-11] MEDS: SODIUM CHLORIDE 0.9% 1,000 ML IV SCH (13:00)
[2018-04-11] MEDS: ATORVASTATIN 40 MG TABLET PO SCH (20:33)
[2018-04-11] MEDS: NICOTINE 21 MG/24 HR PATCH.TD24 TD SCH (20:33)
[2018-04-12 04:41] LABS: BASOPHILS # (AUTO) 0.06 x10^3/uL (0-0.1); BASOPHILS % (AUTO) 1 % (0-1); EOSINOPHILS # (AUTO) 0.35 x10^3/uL (0-0.4); EOSINOPHILS % (AUTO) 3 % (1-7); LYMPHOCYTES # (AUTO) 3.37 x10^3/uL (1-3.4); LYMPHOCYTES % (AUTO) 29 % (22-44); MD NO; MEAN CORPUSCULAR HEMOGLOBIN 30.3 pg (27.0-34.8); MEAN CORPUSCULAR HGB CONC 33.6 g/dL (32.4-35.8); MEAN PLATELET VOLUME 10.3 fL (7.4-10.4); MONOCYTES # (AUTO) 0.81 x10^3/uL (0.2-0.8); MONOCYTES % (AUTO) 7 % (2-9); NEUTROPHILS # (AUTO) 6.92 x10^3/uL (1.8-6.8); NEUTROPHILS % (AUTO) 60 % (42-75); PLATELET COUNT 184 x10^3/uL (130-400); RED BLOOD COUNT 4.73 x10^6/uL (3.82-5.3); RED CELL DISTRIBUTION WIDTH 15.6 % (9.6-15.2)
[2018-04-12 04:52] LABS: CHLORIDE 108 mmol/L (98-107)
[2018-04-12 05:00] VITALS: BP 132/67
[2018-04-12 05:07] LABS: ALANINE AMINOTRANSFERASE 25 U/L (12-78); ALBUMIN 3.1 g/dL (3.4-5.0); ALKALINE PHOSPHATASE 157 U/L (45-117); ANION GAP 8 mmol/L (5-15); BILIRUBIN,TOTAL 0.8 mg/dL (0.2-1.0); CALCIUM 9.6 mg/dL (8.5-10.1); CHOL/HDL RATIO 3.3; CHOLESTEROL, TOTAL 157 mg/dL (140-239); CREATININE 0.81 mg/dL (0.55-1.02); HDL CHOL % 31 % (28-40); HDL CHOLESTEROL (DIRECT) 48 mg/dL (40-60); LDL CHOLESTEROL,CALCULATED 81 mg/dL (54-169); LDL/HDL RATIO 1.7 (0.5-3.0); TOTAL PROTEIN 6.4 g/dL (6.4-8.2); TRIGLYCERIDES 139 mg/dL (50-200); VLDL CHOLESTEROL 28 mg/dL (0-25)
[2018-04-12 05:09] LABS: THYROID STIMULATING HORMONE < 0.005 mIU/L (0.358-3.740)
[2018-04-12] MEDS: morphine SULFATE 10 MG/ML, 1ML IVPush PRN (05:29)
[2018-04-12 06:20] LABS: MICROSCOPIC INDICATED
[2018-04-12] MEDS: PANTOPRAZOLE GRAN. PKT 40 MG NG SCH (08:03)
[2018-04-12 13:27] VITALS: BP 134/78
[2018-04-12] MEDS: POLYETHYLENE GLYCOL 17 GM PACKET PO SCH (14:01)
[2018-04-12 19:03] VITALS: BP 135/82
[2018-04-12] MEDS: ATORVASTATIN 80 MG TABLET PO SCH (20:38)
[2018-04-12] MEDS: NICOTINE 21 MG/24 HR PATCH.TD24 TD SCH (20:40)
[2018-04-13 01:55] VITALS: BP 117/66
[2018-04-13] MEDS: ACETAMINOPHEN 325 MG TABLET PO PRN (02:04)
[2018-04-13] MEDS: morphine SULFATE 10 MG/ML, 1ML IVPush PRN (06:08)
[2018-04-13 06:11] LABS: CHLORIDE 107 mmol/L (98-107)
[2018-04-13 06:19] LABS: ANION GAP 5 mmol/L (5-15); CALCIUM 9.6 mg/dL (8.5-10.1); CREATININE 0.72 mg/dL (0.55-1.02)
[2018-04-13 06:20] LABS: BASOPHILS # (AUTO) 0.04 x10^3/uL (0-0.1); BASOPHILS % (AUTO) 0 % (0-1); EOSINOPHILS # (AUTO) 0.39 x10^3/uL (0-0.4); EOSINOPHILS % (AUTO) 3 % (1-7); LYMPHOCYTES % (AUTO) 26 % (22-44); MD NO; MEAN CORPUSCULAR HEMOGLOBIN 29.9 pg (27.0-34.8); MEAN CORPUSCULAR HGB CONC 33.4 g/dL (32.4-35.8); MEAN CORPUSCULAR VOLUME 89.7 fL (80-100); MEAN PLATELET VOLUME 10.5 fL (7.4-10.4); MONOCYTES # (AUTO) 0.82 x10^3/uL (0.2-0.8); MONOCYTES % (AUTO) 7 % (2-9); NEUTROPHILS # (AUTO) 7.73 x10^3/uL (1.8-6.8); NEUTROPHILS % (AUTO) 64 % (42-75); PLATELET COUNT 171 x10^3/uL (130-400); RED BLOOD COUNT 4.72 x10^6/uL (3.82-5.3); RED CELL DISTRIBUTION WIDTH 14.8 % (9.6-15.2)
[2018-04-13 07:18] VITALS: BP 145/89
[2018-04-13] MEDS: PANTOPRAZOLE GRAN. PKT 40 MG NG SCH (08:42)
[2018-04-13] MEDS: POLYETHYLENE GLYCOL 17 GM PACKET PO SCH (08:42)
[2018-04-13] MEDS: CLOPIDOGREL 75 MG TABLET PO SCH (08:42)
[2018-04-13] MEDS: KETOROLAC 30 MG/1 ML IVPush PRN (13:21)
--- NOTE | 2018-04-13 17:28 | NUR ---
REC PUREE/THIN; swallow precautions sheet posted at bedside Addendum: 04/13/18 at [address] Amended: Links added.
[2018-04-13 18:52] VITALS: BP 147/88
[2018-04-13] MEDS: ATORVASTATIN 80 MG TABLET PO SCH (20:25)
[2018-04-13] MEDS: NICOTINE 21 MG/24 HR PATCH.TD24 TD SCH (20:28)
[2018-04-14 01:20] VITALS: BP 142/83
[2018-04-14] MEDS: KETOROLAC 30 MG/1 ML IVPush PRN (02:01)
[2018-04-14] MEDS: ACETAMINOPHEN 325 MG TABLET PO PRN (04:34)
[2018-04-14 05:56] LABS: BASOPHILS # (AUTO) 0.05 x10^3/uL (0-0.1); BASOPHILS % (AUTO) 1 % (0-1); EOSINOPHILS % (AUTO) 7 % (1-7); LYMPHOCYTES # (AUTO) 2.44 x10^3/uL (1-3.4); LYMPHOCYTES % (AUTO) 25 % (22-44); MD NO; MEAN CORPUSCULAR HEMOGLOBIN 30.2 pg (27.0-34.8); MEAN CORPUSCULAR HGB CONC 33.5 g/dL (32.4-35.8); MEAN CORPUSCULAR VOLUME 90.1 fL (80-100); MEAN PLATELET VOLUME 10.1 fL (7.4-10.4); MONOCYTES # (AUTO) 0.73 x10^3/uL (0.2-0.8); MONOCYTES % (AUTO) 7 % (2-9); NEUTROPHILS # (AUTO) 5.88 x10^3/uL (1.8-6.8); NEUTROPHILS % (AUTO) 60 % (42-75); PLATELET COUNT 200 x10^3/uL (130-400); RED BLOOD COUNT 4.77 x10^6/uL (3.82-5.3); RED CELL DISTRIBUTION WIDTH 14.9 % (9.6-15.2)
[2018-04-14 06:10] LABS: CALCIUM 9.4 mg/dL (8.5-10.1); CHLORIDE 105 mmol/L (98-107)
[2018-04-14 06:13] LABS: ANION GAP 7 mmol/L (5-15); CREATININE 1.11 mg/dL (0.55-1.02)
[2018-04-14] MEDS: PANTOPRAZOLE GRAN. PKT 40 MG NG SCH (07:51)
[2018-04-14] MEDS: POLYETHYLENE GLYCOL 17 GM PACKET PO SCH (07:51)
[2018-04-14] MEDS: CLOPIDOGREL 75 MG TABLET PO SCH (07:51)
[2018-04-14] MEDS: GABAPENTIN 300 MG CAPSULE PO SCH ×2 (16:13→21:46)
[2018-04-14 16:15] VITALS: BP 156/93
[2018-04-14 19:12] VITALS: BP 170/111
[2018-04-14 20:01] VITALS: BP 158/84
[2018-04-14] MEDS: NICOTINE 21 MG/24 HR PATCH.TD24 TD SCH (21:30)
[2018-04-14] MEDS: ATORVASTATIN 80 MG TABLET PO SCH (21:46)
[2018-04-15 00:21] VITALS: BP 152/79
[2018-04-15 08:15] VITALS: BP 144/84
[2018-04-15] MEDS ORDERED: PHARMACY INSTRUCTION MC PRN (09:00)
[2018-04-15] MEDS: GABAPENTIN 300 MG CAPSULE PO SCH ×2 (10:57→16:34)
[2018-04-15] MEDS: PANTOPRAZOLE GRAN. PKT 40 MG NG SCH (10:57)
[2018-04-15] MEDS: POLYETHYLENE GLYCOL 17 GM PACKET PO SCH (10:57)
[2018-04-15] MEDS ORDERED: NAPROXEN 250 MG TABLET PO PRN (11:00)
[2018-04-15 13:50] VITALS: BP 129/82
[2018-04-15] MEDS ORDERED: GABA300C10 PO (15:45)
[2018-04-15] MEDS ORDERED: PANT40GR NG (15:45)
[2018-04-15] MEDS ORDERED: ASPI81TA45 PO (15:45)
[2018-04-15] MEDS ORDERED: NAPR250T6 PO (15:45)
[2018-04-15] MEDS ORDERED: POLY17PO5 PO (15:45)
[2018-04-15] MEDS ORDERED: ATOR-2 PO (15:45)
[2018-04-16] MEDS ORDERED: ASPIRIN 81 MG TABLET EC PO SCH (06:00)
== END 2018-04-15 18:28 | DRG 61 ==
LOC: ED 20:45 → SUATTDRO 20:55 → CCU 21:20 → 4WST 04-12 05:00
PROVIDERS: ADMIT Hospitalist; ATTEND Hospitalist
DX: I63.511 Cerebral infarction due to unspecified occlusion or stenosis of right middle cerebral artery (principal); R65.11 Systemic inflammatory response syndrome (SIRS) of non-infectious origin with acute organ dysfunction; G81.94 Hemiplegia, unspecified affecting left nondominant side; I71.6 Thoracoabdominal aortic aneurysm, without rupture; K80.20 Calculus of gallbladder without cholecystitis without obstruction; I73.9 Peripheral vascular disease, unspecified; I65.23 Occlusion and stenosis of bilateral carotid arteries; Z88.6 Allergy status to analgesic agent; Z88.8 Allergy status to other drugs, medicaments and biological substances; F12.90 Cannabis use, unspecified, uncomplicated; F17.200 Nicotine dependence, unspecified, uncomplicated; I10 Essential (primary) hypertension; I16.0 Hypertensive urgency; I25.10 Atherosclerotic heart disease of native coronary artery without angina pectoris; I25.2 Old myocardial infarction; I67.2 Cerebral atherosclerosis; I70.0 Atherosclerosis of aorta; Z98.51 Tubal ligation status; Z95.5 Presence of coronary angioplasty implant and graft; Z91.19 Patient's noncompliance with other medical treatment and regimen; Z89.412 Acquired absence of left great toe; Z79.82 Long term (current) use of aspirin; W18.39XA Other fall on same level, initial encounter; Y93.89 Activity, other specified; Y92.89 Other specified places as the place of occurrence of the external cause; Y99.8 Other external cause status; Z79.899 Other long term (current) drug therapy
CPT/HCPCS: 36415; 70450; 70496; 70498; 80047; 80048; 80053; 80061; 81001; 82962; 83735; 84100; 84439; 84443; 84481; 85025; 85610; 85730; 87081; 93005; 93306; 99291; G0378; J1885; J2405; J2997; Q9967; 92522-GN; J2270; J7030

== ENCOUNTER 2018-04-26 22:14 | Emergency (ER) | payer MEDICARE ==
[~2018-04-26] VITALS: Ht 170.2 cm; Wt 70.0 kg
[~2018-04-26 22:14] MED LIST changes: +ASPI81TA45 PO; +ATOR-2 PO; +GABA300C10 PO; +NAPR250T6 PO
[2018-04-26] MEDS ORDERED: IBUPROFEN 600 MG TABLET PO ONE (22:30)
--- NOTE | 2018-04-26 22:37 | NUR ---
PT HERE FOR HEADACHE AND TINGLING TO HANDS AND BACK. PT HAS HX OF SAME. PT REFUSING LAB. PT TO CT.
[2018-04-26] MEDS ORDERED: IBUPROFEN 600 MG TABLET ONE (22:52)
[2018-04-26] MEDS ORDERED: PLEASE ENTER HEIGHT AND WEIGHT MC SCH (23:00)
--- NOTE | 2018-04-26 23:00 | NUR ---
PT MEDICATED. BP IMPTROVED AND MD NOTIFIED.
[2018-04-26 23:01] VITALS: BP 162/84
--- NOTE | 2018-04-26 23:45 | NUR ---
SPOKE WITH PTS BROTHER ERICK PER PT REQUEST AND UPDATED HIME ON PTS CONDITION. CALLED REPORT TO GLENN GOMEZ AT [facility]. PT TO BE TRANSPORTED VIA [facility].
--- NOTE | 2018-04-26 23:55 | NUR ---
REPORT TO KALEY
== END 2018-04-27 00:09 | disposition home or self-care (01) ==
LOC: ED 04-27 00:03
DX: G43.C1 Periodic headache syndromes in child or adult, intractable (principal); I11.9 Hypertensive heart disease without heart failure; I25.2 Old myocardial infarction; Z86.73 Personal history of transient ischemic attack (TIA), and cerebral infarction without residual deficits
CPT/HCPCS: 70450; 93005; 99284

== ENCOUNTER 2018-07-29 19:20 | Inpatient (IN) | payer MEDICARE ==
[~2018-07-29] VITALS: Ht 165.1 cm; Wt 68.6 kg
[~2018-07-29 19:20] MED LIST changes: +ETOMIDATE 20 MG/10 ML ONE; +PHENYLEPHRINE 10 MG/ML ONE; +ROCURONIUM 10 MG/ML,10ML ONE
[2018-07-29] MEDS ORDERED: ASPIRIN 81 MG TABLET CHEW PO ONE (19:30)
[2018-07-29] MEDS ORDERED: ASPIRIN 300 MG SUPP PR ONE (19:30)
[2018-07-29] MEDS ORDERED: SODIUM CHLORIDE FLUSH 10ML SYR IVF ONE (19:30)
--- NOTE | 2018-07-29 19:36 | NUR ---
ASA TO BE HELD AT THIS TIME.
[2018-07-29 19:41] LABS: BASOPHILS # (AUTO) 0.04 x10^3/uL (0-0.1); BASOPHILS % (AUTO) 0 % (0-1); EOSINOPHILS # (AUTO) 0.07 x10^3/uL (0-0.4); EOSINOPHILS % (AUTO) 1 % (1-7); LYMPHOCYTES # (AUTO) 3.77 x10^3/uL (1-3.4); LYMPHOCYTES % (AUTO) 34 % (22-44); MD NO; MEAN CORPUSCULAR HEMOGLOBIN 29.5 pg (27.0-34.8); MEAN CORPUSCULAR HGB CONC 31.5 g/dL (32.4-35.8); MEAN CORPUSCULAR VOLUME 93.6 fL (80-100); MEAN PLATELET VOLUME 10.3 fL (7.4-10.4); MONOCYTES # (AUTO) 0.74 x10^3/uL (0.2-0.8); MONOCYTES % (AUTO) 7 % (2-9); NEUTROPHILS # (AUTO) 6.65 x10^3/uL (1.8-6.8); NEUTROPHILS % (AUTO) 59 % (42-75); PLATELET COUNT 275 x10^3/uL (130-400); RED BLOOD COUNT 5.11 x10^6/uL (3.82-5.3); RED CELL DISTRIBUTION WIDTH 15.1 % (9.6-15.2)
--- NOTE | 2018-07-29 19:47 | NUR ---
ATIF. REPORT RECEIVED FROM EMS. PT C/O ALL QUADRANTS ABD PAIN WITH N/V/D FOR A FEW DAYS. PT HAS HX OF HI/STROKE. UNKNOWN DEFICITS. ST ELEVATION ON EKG BY EMS. SINUS TACHY ON BUSHING AND BROACH OPERATOR RATE 110'S AT THIS TIME. PT IS UNABLE TO ANSWER ALL QUESTIONS. RESPS EVEN AND UNLABORED. ALL MONITORS IN PLACE. CALL LIGHT WITHIN REACH.
[2018-07-29 19:51] LABS: INTERNATIONAL NORMALIZED RATIO 1.05 (0.93-1.1)
[2018-07-29 19:59] LABS: ALANINE AMINOTRANSFERASE 31 U/L (12-78); ALBUMIN 3.7 g/dL (3.4-5.0); ANION GAP 17 mmol/L (5-15); CHLORIDE 108 mmol/L (98-107); CREATININE 1.56 mg/dL (0.55-1.02)
[2018-07-29 20:04] LABS: ALKALINE PHOSPHATASE 196 U/L (45-117); BILIRUBIN,TOTAL 0.7 mg/dL (0.2-1.0); TOTAL PROTEIN 8.3 g/dL (6.4-8.2)
--- NOTE | 2018-07-29 20:13 | NUR ---
PT TO CT NOW.
[2018-07-29] MEDS ORDERED: LORazepam 2 MG/ML, 1ML IVPush ONE (20:30)
[2018-07-29] MEDS ORDERED: LORazepam 2 MG/ML, 1ML ONE (20:31)
--- NOTE | 2018-07-29 20:34 | NUR ---
PT MEDICATED PER EMAR. PT TOLERATED WELL.
--- NOTE | 2018-07-29 20:34 | NUR ---
pt unable to lay down for ct. dr. pandya will order meds.
--- NOTE | 2018-07-29 21:14 | NUR ---
pt back to ct now.
[2018-07-29] MEDS ORDERED: OMNIPAQUE 350 MG/ML, 100ML BOTTLE ONE (21:17)
--- NOTE | 2018-07-29 22:23 | NUR ---
pt resting in [facility]. all monitors in place. call light within reach. awaiting admit now.
[2018-07-29] MEDS ORDERED: SODIUM CHLORIDE FLUSH 10ML SYR IVF PRN (22:30)
--- NOTE | 2018-07-29 22:37 | NUR ---
report given to khari perez. all questions answered.
--- NOTE | 2018-07-29 22:50 | NUR ---
ns infusing at this time.
[2018-07-29] MEDS ORDERED: METRONIDAZOLE PMX 500MG/100ML 100 ML ONE (22:59)
[2018-07-29] MEDS ORDERED: CEFTRIAXONE PMX 1GM/50ML 50 ML ONE (23:00)
[2018-07-29] MEDS ORDERED: CEFTRIAXONE PMX 1GM/50ML 50 ML IVPB ONE (23:00)
[2018-07-29] MEDS ORDERED: HEPARIN 25,000 UNITS/500ML PMX 500 ML IV PRN (23:00)
[2018-07-29] MEDS ORDERED: HEPARIN 5,000 UNITS/ML, 1ML IV ONE (23:00)
[2018-07-29] MEDS ORDERED: HEPARIN 5,000 UNITS/ML, 1ML IV PRN (23:00)
[2018-07-29] MEDS: METRONIDAZOLE PMX 500MG/100ML 100 ML IVPB ONE ×2 (23:00→23:08)
[2018-07-29] MEDS ORDERED: LACTATED RINGERS 1,000 ML IVBOLUS ONE (23:00)
[2018-07-29] MEDS ORDERED: SODIUM CHLORIDE 0.9% 1,000ML IVBOLUS ONE (23:00)
--- NOTE | 2018-07-29 23:21 | NUR ---
pt medicated per emar. pt tolerated well.
[2018-07-29] MEDS ORDERED: METRONIDAZOLE PMX 500MG/100ML 100 ML IV SCH (23:30)
[2018-07-29] MEDS ORDERED: ACETAMINOPHEN 650 MG SUPP PR PRN (23:30)
[2018-07-29] MEDS ORDERED: CEFTRIAXONE PMX 1GM/50ML 50 ML IV SCH (23:30)
[2018-07-29] MEDS ORDERED: MIDAZOLAM 1 MG/ML, 2ML ONE (23:44)
[2018-07-29] MEDS ORDERED: FENTANYL PF 250 MCG/5ML ONE (23:47)
[2018-07-30] MEDS ORDERED: THROMBIN 20,000 UNIT VIAL TP ONE (00:33)
[2018-07-30] MEDS ORDERED: HEPARIN 1,000 UNITS/ML, 30ML ONE (00:33)
[2018-07-30] MEDS ORDERED: HYDROCORTISONE 100 MG INJ. ONE (00:41)
[2018-07-30] MEDS ORDERED: CALCIUM CHLORIDE 10%, 10ML SYR ONE (00:41)
[2018-07-30 02:16] LABS: MEAN CORPUSCULAR HEMOGLOBIN 29.4 pg (27.0-34.8); MEAN CORPUSCULAR VOLUME 94.7 fL (80-100); MEAN PLATELET VOLUME 9.8 fL (7.4-10.4); PLATELET COUNT 135 x10^3/uL (130-400); RED BLOOD COUNT 4.01 x10^6/uL (3.82-5.3); RED CELL DISTRIBUTION WIDTH 15.4 % (9.6-15.2)
[2018-07-30 02:18] LABS: ALBUMIN 2.5 g/dL (3.4-5.0); ANION GAP 22 mmol/L (5-15); CALCIUM 10.3 mg/dL (8.5-10.1); CHLORIDE 115 mmol/L (98-107)
[2018-07-30 02:23] LABS: MD YES
[2018-07-30 02:25] LABS: <PLATELET ESTIMATE> ADEQUATE; <RBC MORPHOLOGY> NORMAL; BAND#(MANUAL) 0.76 x10^3/uL; BANDS%(MANUAL) 4 % (0-7); LYMPH#(MANUAL) 1.52 x10^3/uL (1-3.4); LYMPHS% (MANUAL) 8 % (22-44); METAMYELOCYTES# (MANUAL) 0.19 x10^3/uL (0-0); METAMYELOCYTES% (MANUAL) 1 % (0-1); MONOS#(MANUAL) 0.76 x10^3/uL (0.3-2.7); MONOS% (MANUAL) 4 % (2-9); SEG#(MANUAL) 15.77 x10^3/uL (1.8-6.8); SEGS% (MANUAL) 83 % (42-75)
[2018-07-30 02:26] LABS: LARGE PLATELETS 1+
[2018-07-30 02:28] LABS: ALANINE AMINOTRANSFERASE 2036 U/L (12-78); ALKALINE PHOSPHATASE 150 U/L (45-117); BILIRUBIN,TOTAL 0.5 mg/dL (0.2-1.0); CREATININE 1.66 mg/dL (0.55-1.02); TOTAL PROTEIN 5.7 g/dL (6.4-8.2)
[2018-07-30] MEDS ORDERED: ASPIRIN 81 MG TABLET CHEW ONE (02:28)
[2018-07-30] MEDS ORDERED: SODIUM BICARB 8.4%, 50ML SYRINGE ONE (03:03)
[2018-07-30 03:11] LABS: MICROSCOPIC INDICATED
[2018-07-30 03:21] LABS: CULTURE INDICATED? YES
[2018-07-30] MEDS ORDERED: LACTULOSE 20 GM/30 ML UDC NG PRN (03:30)
[2018-07-30] MEDS ORDERED: LACTATED RINGERS 1,000 ML IV SCH (03:30)
[2018-07-30] MEDS ORDERED: SENNA/DOCUSATE TABLET NG PRN (03:30)
[2018-07-30] MEDS ORDERED: SODIUM BICARB 8.4%, 50ML SYRINGE IVPush ONE (03:30)
[2018-07-30] MEDS ORDERED: FAMOTIDINE 20 MG/2 ML IV SCH ×3 (03:30→09:00)
[2018-07-30] MEDS ORDERED: LIDOCAINE-MPF 1%, 2ML ENDO PRN (03:30)
[2018-07-30] MEDS ORDERED: PHARMACY MAY ADJ FOR RENAL FX MC SCH (03:30)
[2018-07-30] MEDS ORDERED: BISACODYL 10 MG SUPP PR PRN (03:30)
[2018-07-30] MEDS ORDERED: ALBUMIN HUMAN 25% 100 ML IV ONE ×3 (03:30→06:30)
[2018-07-30] MEDS ORDERED: ALBUTEROL/IPRATROPIUM 2.5MG/0.5MG, 3 ML INLINE SCH (03:30)
[2018-07-30] MEDS ORDERED: SENNA 176 MG/5 ML ORAL SOL NG PRN (03:30)
[2018-07-30] MEDS ORDERED: ALBUMIN HUMAN 25% 100 ML ONE (03:32)
[2018-07-30] MEDS: SODIUM BICARBONATE 8.4% 150 MEQ in DEXTROSE 5% 1,000 ML IV SCH ×3 (03:33→18:37)
[2018-07-30] MEDS ORDERED: NOREPINEPHRINE 1 MG/ML, 4ML ONE (03:45)
[2018-07-30] MEDS: NOREPINEPHRINE 4 MG in SODIUM CHLORIDE 0.9% 246 ML IV PRN ×2 (03:56→10:45)
[2018-07-30] MEDS ORDERED: NOREPINEPHRINE 4 MG in SODIUM CHLORIDE 0.9% 246 ML IV PRN (04:00)
[2018-07-30] MEDS: PIPERACILLIN/TAZO/PMX 3.375GM 50 ML IV SCH ×4 (05:14→23:05)
[2018-07-30 05:59] VITALS: BP 105/60
[2018-07-30] MEDS: LINEZOLID PMX 600MG/300ML 300 ML IV SCH ×2 (06:20→18:10)
[2018-07-30] MEDS ORDERED: SODIUM BICARBONATE 1 MEQ/ML, 50ML VIAL IVPush ONE (06:30)
[2018-07-30 06:38] LABS: MEAN CORPUSCULAR HEMOGLOBIN 29.9 pg (27.0-34.8); MEAN CORPUSCULAR HGB CONC 31.9 g/dL (32.4-35.8); MEAN CORPUSCULAR VOLUME 93.8 fL (80-100); MEAN PLATELET VOLUME 11.1 fL (7.4-10.4); PLATELET COUNT 104 x10^3/uL (130-400); RED BLOOD COUNT 3.72 x10^6/uL (3.82-5.3); RED CELL DISTRIBUTION WIDTH 15.6 % (9.6-15.2)
[2018-07-30 06:39] LABS: MD YES
[2018-07-30 06:40] LABS: BAND#(MANUAL) 1.41 x10^3/uL; BANDS%(MANUAL) 8 % (0-7); LYMPHS% (MANUAL) 4 % (22-44); MONOS#(MANUAL) 0.53 x10^3/uL (0.3-2.7); MONOS% (MANUAL) 3 % (2-9); MYELOCYTES# (MANUAL) 0.18 x10^3/uL (0-0); MYELOCYTES% (MANUAL) 1 % (0-0); SEG#(MANUAL) 14.78 x10^3/uL (1.8-6.8); SEGS% (MANUAL) 84 % (42-75)
[2018-07-30 06:41] LABS: <PLATELET ESTIMATE> DECREASED; LARGE PLATELETS 1+
[2018-07-30 06:43] LABS: ANISOCYTOSIS 1+
[2018-07-30 06:53] LABS: ALANINE AMINOTRANSFERASE 2805 U/L (12-78); ALBUMIN 3.2 g/dL (3.4-5.0); ALKALINE PHOSPHATASE 137 U/L (45-117); BILIRUBIN,TOTAL 1.2 mg/dL (0.2-1.0); CALCIUM 10.1 mg/dL (8.5-10.1); CREATININE 1.89 mg/dL (0.55-1.02); TOTAL PROTEIN 6.2 g/dL (6.4-8.2)
[2018-07-30] MEDS ORDERED: LACTATED RINGERS 1,000 ML IVBOLUS ONE (07:00)
[2018-07-30 07:04] LABS: ANION GAP 27 mmol/L (5-15); CHLORIDE 112 mmol/L (98-107)
[2018-07-30] MEDS ORDERED: VASOPRESSIN 100 UNIT in SODIUM CHLORIDE 0.9% 495 ML IV PRN (13:00)
[2018-07-30] MEDS: FENTANYL PF 100 MCG/2ML IVPush PRN ×3 (13:23→16:28)
[2018-07-30] MEDS ORDERED: ALBUMIN HUMAN 5% 500 ML IV ONE (15:00)
[2018-07-30] MEDS ORDERED: NOREPINEPHRINE 8 MG in SODIUM CHLORIDE 0.9% 242 ML IV PRN (15:00)
[2018-07-30] MEDS ORDERED: VASOPRESSIN 50 UNIT in SODIUM CHLORIDE 0.9% 247.5 ML IV PRN (15:06)
[2018-07-30] MEDS: HYDROCORTISONE 100 MG INJ. IVPush SCH ×2 (15:08→21:00)
[2018-07-30 15:16] LABS: HIT RESULT NEGATIVE (NEGATIVE)
[2018-07-30 15:48] LABS: CHLORIDE 107 mmol/L (98-107)
[2018-07-30 15:58] LABS: ANION GAP 27 mmol/L (5-15); CREATININE 2.58 mg/dL (0.55-1.02)
[2018-07-30] MEDS ORDERED: MAGNESIUM SULFATE PMX 2GM/50ML 50 ML IV ONE (17:30)
[2018-07-30] MEDS: DEXMEDETOMIDINE 200 MCG in SODIUM CHLORIDE 0.9% 48 ML IV PRN (18:37)
[2018-07-30] MEDS: ALBUTEROL/IPRATROPIUM 2.5MG/0.5MG, 3 ML INLINE SCH ×2 (18:49→22:25)
[2018-07-30 21:52] LABS: ANION GAP 32 mmol/L (5-15); CALCIUM 8.7 mg/dL (8.5-10.1); CHLORIDE 100 mmol/L (98-107); CREATININE 2.97 mg/dL (0.55-1.02)
[2018-07-31] MEDS: DEXMEDETOMIDINE 200 MCG in SODIUM CHLORIDE 0.9% 48 ML IV PRN (01:15)
[2018-07-31] MEDS ORDERED: EPINEPHRINE SYRINGE 0.1 MG/ML, 10ML ONE ×2 (03:00)
[2018-07-31] MEDS ORDERED: CODE BLUE RESPONSE XX ONE (03:00)
== END 2018-07-31 05:19 | disposition expired | DRG 270 ==
LOC: ED 19:57 → EDIP 22:10 → CCU 07-30 01:20
PROVIDERS: ADMIT Family Medicine; ATTEND Family Medicine
PROC: 04C50ZZ Extirpation of Matter from Superior Mesenteric Artery, Open Approach (ICD-10-PCS; principal; 2018-07-30)
PROC: 0T9B70Z Drainage of Bladder with Drainage Device, Via Natural or Artificial Opening (ICD-10-PCS; 2018-07-30)
PROC: 5A1935Z Respiratory Ventilation, Less than 24 Consecutive Hours (ICD-10-PCS; 2018-07-30)
PROC: 0BH17EZ Insertion of Endotracheal Airway into Trachea, Via Natural or Artificial Opening (ICD-10-PCS; 2018-07-30)
PROC: 04HY32Z Insertion of Monitoring Device into Lower Artery, Percutaneous Approach (ICD-10-PCS; 2018-07-30)
PROC: 5A12012 Performance of Cardiac Output, Single, Manual (ICD-10-PCS; 2018-07-31)
DX: T82.898A Other specified complication of vascular prosthetic devices, implants and grafts, initial encounter (principal); A41.9 Sepsis, unspecified organism; G93.41 Metabolic encephalopathy; J96.00 Acute respiratory failure, unspecified whether with hypoxia or hypercapnia; K55.059 Acute (reversible) ischemia of intestine, part and extent unspecified; K72.00 Acute and subacute hepatic failure without coma; R65.21 Severe sepsis with septic shock; I21.4 Non-ST elevation (NSTEMI) myocardial infarction; N17.9 Acute kidney failure, unspecified; K55.1 Chronic vascular disorders of intestine; R57.9 Shock, unspecified; Y83.8 Other surgical procedures as the cause of abnormal reaction of the patient, or of later complication, without mention of misadventure at the time of the procedure; E11.51 Type 2 diabetes mellitus with diabetic peripheral angiopathy without gangrene; I10 Essential (primary) hypertension; E83.52 Hypercalcemia; I25.10 Atherosclerotic heart disease of native coronary artery without angina pectoris; J43.9 Emphysema, unspecified; I71.2 Thoracic aortic aneurysm, without rupture; K76.0 Fatty (change of) liver, not elsewhere classified; D69.6 Thrombocytopenia, unspecified; I46.9 Cardiac arrest, cause unspecified; I65.23 Occlusion and stenosis of bilateral carotid arteries; K80.20 Calculus of gallbladder without cholecystitis without obstruction; Z86.73 Personal history of transient ischemic attack (TIA), and cerebral infarction without residual deficits; Z85.41 Personal history of malignant neoplasm of cervix uteri; Z88.6 Allergy status to analgesic agent; Z88.8 Allergy status to other drugs, medicaments and biological substances; Y92.89 Other specified places as the place of occurrence of the external cause; Z86.79 Personal history of other diseases of the circulatory system; Z87.891 Personal history of nicotine dependence; Z89.412 Acquired absence of left great toe; Z98.51 Tubal ligation status; Z95.5 Presence of coronary angioplasty implant and graft; I25.2 Old myocardial infarction
CPT/HCPCS: 36415; 36600; 70450; 71045; 71275; 74018; 74177; 80047; 80048; 80053; 81001; 82533; 82803; 83605; 83735; 83880; 84100; 84478; 84484; 85014; 85018; 85025; 85520; 85610; 85730; 86022; 86850; 86900; 87040; 87070; 87081; 87086; 87205; 92950; 93005; 94002; 94003; 96374; G0378; J0696; J1644; J2020; J2250; J2543; J3010; J7070; J7620; P9045; P9047; Q9967; J1720; J2060; J2370; J3475; J3490; J7030; J7050; J7120